=== PATIENT | female | born 1985 ===

== ENCOUNTER 2017-01-05 09:54 | Emergency (ER) | payer OTHER ==
[2017-01-05 09:59] VITALS: BP 110/58; PULSE 75; TEMP 97.9; O2SAT 99
[2017-01-05 10:00] VITALS: BMI 33.8
--- NOTE | 2017-01-05 10:34 | ED PDOC ---
HPI: Skin/Bite Injury Time Seen by Provider: 01/05/17 10:12 Chief Complaint (Nursing): Abnormal Skin Integrity Chief Complaint (Provider): Rash History Per: Patient History/Exam Limitations: no limitations Onset/Duration Of Symptoms: Days (Yesterday) Additional Complaint(s): Pt. with rash on body and itching all over. No numbness, tingles, weakness, chest pain, dyspnea, trouble swallowing. No new food, drinks, lotion, or anything different. Pt. with no pain. No one else has symptoms. Past Medical History Reviewed: Nursing Documentation, Vital Signs Vital Signs: Last Vital Signs Temp 97.9 F 01/05/17 09:58 Pulse 75 01/05/17 09:58 Resp BP 110/58 L 01/05/17 09:58 Pulse Ox 99 01/05/17 09:58 - Medical History PMH: No Chronic Diseases Denies: Chronic Kidney Disease - Surgical History Surgical History: (2) - Family History Family History: States: Unknown Family Hx - Living Arrangements Living Arrangements: With Family - Social History Current smoker - smoking cessation education provided: No Alcohol: None Drugs: Denies - Home Medications Home Medications: Ambulatory Orders Medication Instructions Recorded Oxycodone HCl/Acetaminophen 1 tab PO Q8 01/10/15 [Percocet 325 mg-5 mg] Amoxicillin/Clavulanate [Augmentin 1 tab PO BID #20 tab 09/03/16 875 MG-125 MG] DiphenhydrAMINE [Benadryl] 25 mg PO Q8H PRN 5 Days 01/05/17 Permethrin 5% [Permethrin] 1 unit TP ONCE 1 Days 01/05/17 predniSONE [predniSONE Tab] 20 mg PO BID 5 Days 01/05/17 - Allergies Allergies/Adverse Reactions: Allergies Allergy/AdvReac Type Severity Reaction Status Date / Time No Known Allergies Allergy Verified 01/05/17 10:05 Review of Systems Constitutional: Negative for: Fever, Weakness Eyes: Negative for: Vision Change ENT: Negative for: Nose Discharge, Nose Congestion, Mouth Pain, Mouth Swelling, Throat Pain Cardiovascular: Negative for: Chest Pain Respiratory: Negative for: Cough, Shortness of Breath Gastrointestinal: Negative for: Nausea, Vomiting Musculoskeletal: Negative for: Neck Pain, Shoulder Pain, Arm Pain Skin: Positive for: Rash Neurological: Negative for: Weakness, Numbness Physical Exam - Reviewed Nursing Documentation Reviewed: Yes Vital Signs Reviewed: Yes - Physical Exam Appears: Positive for: Non-toxic, No Acute Distress Head Exam: Positive for: ATRAUMATIC Skin: Positive for: Rash (upper back near neck, R elbow, L forearm with small patch blanching erythema, mild raised, not indurated, with no dc or tenderness in hives pattern; b/l space between toes and fingers with few scattered raised bite like lesions with mild erythema and raised like scabies) Eye Exam: Positive for: Normal appearance, EOMI, PERRL ENT: Positive for: Normal ENT Inspection. Negative for: Nasal Congestion, Pharyngeal Erythema Neck: Positive for: Painless ROM, Supple Cardiovascular/Chest: Positive for: Regular Rate, Rhythm Respiratory: Positive for: Normal Breath Sounds Gastrointestinal/Abdominal: Positive for: Normal Exam, Bowel Sounds, Soft. Negative for: Tenderness Back: Positive for: Normal Inspection. Negative for: R CVA Tenderness Extremity: Positive for: Normal ROM. Negative for: Tenderness, Pedal Edema Neurologic/Psych: Positive for: Alert, Oriented - ECG O2 Sat by Pulse Oximetry: 99 - Progress ED Course And Treament: 1048: Stable. AAOx3. Pain free. Possible scabies and allergic reaction. Disposition - Clinical Impression Clinical Impression: Scabies, Allergic reaction - Patient ED Disposition Is Patient to be Admitted: No Counseled Patient/Family Regarding: Diagnosis, Need For Followup, Rx Given - Disposition Referrals: [facility] [Outside] - 01/06/17 Disposition: Routine/Home Disposition Time: 10:48 Condition: STABLE Additional Instructions: Return if not better in 3 days. Prescriptions: DiphenhydrAMINE [Benadryl] 25 mg PO Q8H PRN 5 Days PRN Reason: Rash Permethrin 5% [Permethrin] 1 unit TP ONCE 1 Days predniSONE [predniSONE Tab] 20 mg PO BID 5 Days Instructions: Urticaria (ED), Scabies (ED) Print Language: SLOVAK
== END 2017-01-05 11:05 | disposition home or self-care (01) ==
LOC: H.ER 09:54
DX: B86 Scabies (principal)

== ENCOUNTER 2017-01-11 14:28 | Emergency (ER) | payer OTHER ==
[2017-01-11 14:30] VITALS: BMI 33.8
[2017-01-11 14:47] VITALS: BP 126/75; PULSE 89; RESP 16; TEMP 97.9; O2SAT 100
--- NOTE | 2017-01-11 16:00 | ED PDOC ---
HPI: Skin/Bite Injury Time Seen by Provider: 01/11/17 15:02 Chief Complaint (Nursing): Abnormal Skin Integrity Chief Complaint (Provider): Continued itchy rash History Per: Patient History/Exam Limitations: no limitations Onset/Duration Of Symptoms: Days Current Symptoms Are (Timing): Still Present Severity: Mild Additional Complaint(s): Pt states the rash is better but has still not gone away. Pt states she did not yet make a f/u appointment. Denies new foods, detergents, etc. Past Medical History Reviewed: Historical Data, Nursing Documentation, Vital Signs Vital Signs: Last Vital Signs Temp 97.9 F 01/11/17 14:46 Pulse 89 01/11/17 14:46 Resp 16 01/11/17 14:46 BP 126/75 01/11/17 14:46 Pulse Ox 100 01/11/17 14:46 - Medical History PMH: No Chronic Diseases Denies: Chronic Kidney Disease - Surgical History Surgical History: (2) - Family History Family History: States: Unknown Family Hx - Home Medications Home Medications: Ambulatory Orders Medication Instructions Recorded DiphenhydrAMINE [Benadryl] 25 mg PO Q8H PRN 5 Days 01/05/17 Loratadine/Pseudoephedrine 1 each PO DAILY #14 tab.er.24h 01/11/17 [Claritin-D 24 Hour Tablet] Permethrin 5% [Permethrin 5% Cream] 30 g TOP ONCE #30 tube 01/11/17 - Allergies Allergies/Adverse Reactions: Allergies Allergy/AdvReac Type Severity Reaction Status Date / Time No Known Allergies Allergy Verified 01/05/17 10:05 Physical Exam - Reviewed Nursing Documentation Reviewed: Yes Vital Signs Reviewed: Yes - Physical Exam Appears: Positive for: Well, Non-toxic, No Acute Distress Head Exam: Positive for: ATRAUMATIC, NORMAL INSPECTION, NORMOCEPHALIC Skin: Positive for: Warm, Rash (Erythematous varies size and shape on trunk and extremities ). Negative for: Normal Color Eye Exam: Positive for: Normal appearance ENT: Positive for: Normal ENT Inspection Neck: Positive for: Normal, Painless ROM Cardiovascular/Chest: Positive for: Regular Rate, Rhythm Respiratory: Positive for: CNT, Normal Breath Sounds Gastrointestinal/Abdominal: Positive for: Normal Exam, Bowel Sounds, Soft Back: Positive for: Normal Inspection Extremity: Positive for: Normal ROM Neurologic/Psych: Positive for: Alert, Oriented - ECG O2 Sat by Pulse Oximetry: 100 Medical Decision Making Medical Decision Making: Discussd repeating cream in 1 week, taking claritin and f.u with the clinic. Disposition - Clinical Impression Clinical Impression: Rash - Patient ED Disposition Is Patient to be Admitted: No Counseled Patient/Family Regarding: Diagnosis, Need For Followup, Rx Given - Disposition Referrals: [facility] [place] [Outside] Disposition: Routine/Home Disposition Time: 15:58 Condition: GOOD Prescriptions: Loratadine/Pseudoephedrine [Claritin-D 24 Hour Tablet] 1 each PO DAILY #14 tab.er.24h Permethrin 5% [Permethrin 5% Cream] 30 g TOP ONCE #30 tube Instructions: Acute Rash (ED) Print Language: THAI
== END 2017-01-11 16:15 | disposition home or self-care (01) ==
LOC: H.ER 14:28
DX: R21 Rash and other nonspecific skin eruption (principal)

== ENCOUNTER 2018-08-09 14:11 | Emergency (ER) | payer OTHER ==
[2018-08-09 14:11] VITALS: BMI 33.8
--- NOTE | 2018-08-09 15:34 | ED PDOC ---
HPI: Chest Pain Time Seen by Provider: 08/09/18 14:47 Chief Complaint (Nursing): Shortness Of Breath Additional Complaint(s): Pt seen and examined at bedside with attending. 33F no PMH p/w 2 days of intermittent palpitations w/ sharp feeling causing her to "catch her breath" but non-radiating and denies association with dizziness or nausea. It lasts for approximately 1-2 minutes and is not associated with any specific activity. She has experienced this before in [place] a number of years ago and was told "it's probably high cholesterol". She denies any feelings of burning sensation. She denies recent travel or cough. In addition, patient identifies some recent rectal bleeding that she describes as being associated with constipation as that is when she experiences the presence of blood on the toilet paper. LMP: 07/08/2018 PSH: Rubi-adri/JR ALL: NKDA Past Medical History - Medical History PMH: Denies: Chronic Kidney Disease - Surgical History Surgical History: (2) - Family History Family History: States: Unknown Family Hx - Home Medications Home Medications: Ambulatory Orders Medication Instructions Recorded DiphenhydrAMINE [Benadryl] 25 mg PO Q8H PRN 5 Days cap 01/05/17 Loratadine/Pseudoephedrine 1 each PO DAILY #14 tab.er.24h 01/11/17 [Claritin-D 24 Hour Tablet] Permethrin 5% [Permethrin 5% Cream] 30 g TOP ONCE #30 tube 01/11/17 Polyethylene Glycol 3350 [Miralax] 1 tbs PO DAILY PRN #1 bottle 08/09/18 - Allergies Allergies/Adverse Reactions: Allergies Allergy/AdvReac Type Severity Reaction Status Date / Time No Known Allergies Allergy Verified 01/05/17 10:05 Review of Systems ROS Statement: Except As Marked, All Systems Reviewed And Found Negative Cardiovascular: Positive for: Chest Pain, Palpitations Gastrointestinal: Positive for: Abdominal Pain Physical Exam - Physical Exam Appears: Positive for: Well, Non-toxic, No Acute Distress Head Exam: Positive for: ATRAUMATIC Skin: Positive for: Normal Color, Warm, Dry Eye Exam: Positive for: Normal appearance ENT: Positive for: Normal ENT Inspection Neck: Positive for: Supple Cardiovascular/Chest: Positive for: Regular Rate, Rhythm. Negative for: Murmur Respiratory: Positive for: Normal Breath Sounds. Negative for: Crackles, Rales, Wheezing Gastrointestinal/Abdominal: Positive for: Bowel Sounds, Soft, Tenderness (mild tenderness on deep palpation over LEFT abdomen) Back: Negative for: L CVA Tenderness, R CVA Tenderness Rectal: Positive for: Rectal Tone Is: (intact), Hemorrhoids (external, non- inflamed, ). Negative for: Blood Streaked Stool Extremity: Positive for: Normal ROM. Negative for: Pedal Edema, Calf Tenderness, Swelling Neurologic/Psych: Positive for: Alert, Oriented - Laboratory Results Result Diagrams: 08/09/18 15:53 08/09/18 15:53 Medical Decision Making Medical Decision Making: pneumonia vs. URI vs. ACS - CBC, CMP, Troponin, TSH, D-dimer, U dip/U preg - CXR - Reeval 1700 EKG NSR without acute ST-T changes CXR without acute findings as interpreted by me CBC shows slight leukocytosis without shift and no evidence of anemia. CMP WNL TSH WNL D-dimer low likelihood 1812 LISSETTE with director of rehabilitative services shows non-inflamed external hemorrhoids, good rectal tone, and no gross blood on fingertip or melena AXR shows nml bowel/gas pattern as interpreted by me Disposition - Clinical Impression Clinical Impression: Palpitations, Constipation, External hemorrhoids, Abdominal pain - Disposition Referrals: [facility] [Outside] (1 week) Disposition: Routine/Home Disposition Time: 18:25 Condition: STABLE Prescriptions: Polyethylene Glycol 3350 [Miralax] 1 tbs PO DAILY PRN #1 bottle PRN Reason: Constipation Instructions: Hemorrhoids, Constipation in Adults, Acute Abdomen (Belly Pain), Palpitations (DC) Forms: [employer] (Turkish) Print Language: ESTONIAN
[2018-08-09 15:58] LABS: BASO # 0.1 K/uL (0.0-0.2); EOS # 0.3 K/uL (0.0-0.7); EOS % 2.7 % (0.0-4.0); HEMOGLOBIN 13.5 g/dL (12.0-16.0); LYMPH # 2.9 K/uL (1.0-4.3); MEAN CELL VOLUME 88.4 fl (81.0-99.0); MEAN CORPUSCULAR HEMOGLOBIN 30.2 pg (27.0-31.0); MEAN CORPUSCULAR HGB CONC 34.2 g/dL (33.0-37.0); MONO # 0.6 K/uL (0.0-0.8); MONO % 5.4 % (0.0-10.0); NEUT % 66.9 % (50.0-75.0); RBC 4.48 Mil/uL (3.80-5.20); RED CELL DISTRIBUTION WIDTH 13.3 % (11.5-14.5); WHITE BLOOD COUNT 11.9 K/uL (4.8-10.8)
[2018-08-09 16:55] LABS: ALB/GLOB RATIO 1.2 (1.0-2.1); ALBUMIN 4.3 g/dL (3.5-5.0); ALT/SGPT 34 U/L (9-52); AST/SGOT 24 U/L (14-36); BLOOD UREA NITROGEN 14 mg/dl (7-17); CALCIUM 8.9 mg/dL (8.4-10.2); GFR NON-AFRICAN AMERICAN > 60
--- NOTE | 2018-08-09 17:22 | RAD ---
Date of service: 08/09/2018 HISTORY: chest pain COMPARISON: 09/25/2011. TECHNIQUE: Chest PA and lateral FINDINGS: LUNGS: No active pulmonary disease. PLEURA: No significant pleural effusion identified. No pneumothorax apparent. CARDIOVASCULAR: No aortic atherosclerotic calcification present. Normal cardiac size. No pulmonary vascular congestion. OSSEOUS STRUCTURES: No significant abnormalities. VISUALIZED UPPER ABDOMEN: Normal. OTHER FINDINGS: None. IMPRESSION: No active disease. No significant interval change compared to the prior examination(s).
[2018-08-09] MEDS ORDERED: Morphine 4 MG/ML VIAL ONE (17:59)
[2018-08-09 18:30] VITALS: BP 112/69; PULSE 85; RESP 16; TEMP 98.2; O2SAT 99
--- NOTE | 2018-08-10 12:13 | RAD ---
Date of service: 08/09/2018 HISTORY: Left-sided abdominal pain. COMPARISON: None available. FINDINGS: BOWEL: Normal. No obstruction. No free air. BONES: Normal. OTHER FINDINGS: None. IMPRESSION: No significant or acute findings to account for/ related to the clinical presentation.
--- NOTE | 2018-08-10 15:22 | CARD ---
APPROVED REPORT Date of service: 08/09/2018 EKG Measurement Heart [id number] <Conclusion> Normal sinus rhythm Normal ECG
== END 2018-08-09 18:30 | disposition home or self-care (01) ==
LOC: H.ER 14:11
DX: R00.2 Palpitations (principal); K59.00 Constipation, unspecified; K62.5 Hemorrhage of anus and rectum; R10.9 Unspecified abdominal pain; K64.4 Residual hemorrhoidal skin tags